=== PATIENT | male | born 1960 | race Caucasian/White ===

== ENCOUNTER 2017-11-08 08:58 | Day surgery (SDC) | payer OTHER, SELFPAY ==
[2017-11-08] VITALS (7 sets, daily range): BP systolic 112–138; BP diastolic 76–88; PULSE 55–89; RESP 10–16; TEMP 35.9–36.6; O2SAT 96–98; BMI 29.6
[2017-11-08] MEDS: SODIUM CHLORIDE 0.9% 1,000 ML 200 ML IV (09:42)
--- NOTE | 2017-11-08 10:21 | P.HP_ITS ---
History of Present Illness Date Patient Seen: 11/08/17 Time Patient Seen: 10:14 Chief complaint: colonoscopy [id number] Narrative: Patient is gentleman here for a colonoscopy. His last exam was 5 years ago. He had polyps removed at that time. No family history of colon cancer . His mother had breast cancer. Patient History Medical History Achilles tendon contracture (Inactive) Surgical History History of tonsillectomy and adenoidectomy (Inactive) Family & Social History Family History: Reviewed 11/08/17 by Dg Garcia MD Social History: household members spouse Meds Home Medications Medication Instructions Recorded Confirmed Type EPINEPHRINE (#EPI-PEN) 1 mg MR Q DAY #2 01/25/11 Rx ALBUTEROL (PROVENTIL INHALER) 2 puff INH SEE INSTRUCTIONS #1 03/05/12 Rx Fluticasone Propionate (FLONASE) 1 spray INTRANASAL BID #1 09/11/12 Rx OMEGA-3 FATTY ACIDS (FISH OIL) 500 mg PO #0 01/05/16 History azelastine 205.5 mcg NS #0 01/05/16 History fexofenadine 180 mg PO QDAYP PRN #0 tab 01/05/16 History multivitamin [Multiple Vitamins] 1 tab PO QDAY #0 tab 01/05/16 History vitamin E 100 unit PO #0 cap 01/05/16 History amoxicillin-pot clavulanate 875 mg PO BID #20 tab 12/24/16 Rx [Augmentin] Allergies Allergy/AdvReac Type Severity Reaction Status Date / Time tramadol [TRAMADOL] Allergy Severe SPASMS AND Unverified 08/28/17 12:02 CONTRACTIONS tree and shrub pollen Allergy Severe Unverified 08/28/17 12:02 [TREE AND SHRUB POLLEN] nickel [NICKEL] Allergy Mild SWELLING, Unverified 08/28/17 12:02 BLEEDING AT CONTACT SITE Review of Systems Review of Systems All systems reviewed & are unremarkable except as noted in HPI and below Exam Vital Signs (past 8 hours): Vital Signs - 8 hr 3 11/08/17 09:28 Temperature 96.7 F L Pulse Rate 89 Respiratory Rate 16 Blood Pressure 138/88 H Pulse Oximetry 98 Pulse Oximetry 98 Oxygen Delivery Method Room Air Narrative Exam Narrative: No apparent distress. Lungs are clear no rales or rhonchi heart regular rate and rhythm without murmur or gallop. Abdomen is protuberant soft nontender without mass. Alert and orient x3. Speech ring content are appropriate. Assessment & Plan (1) Screening for colon cancer: Problem details: Will proceed to colonoscopy. I have discussed the procedure and the rationale with the patient including risks of bleeding, perforation which would necessitate a major operation, failure to find remove all lesions and the potential to tattoo. They appeared to understand and wished to proceed. Current visit: Yes Status: Acute
--- NOTE | 2017-11-08 10:21 | PM.PREOP ---
Pre-operative Note Interval Note Pre-op Check: History & Physical exam performed today H&P completed within 30 days and has changed as indicated here:: None ASA Class (for procedural sedation): I
--- NOTE | 2017-11-08 10:26 | P.HP_ITS ---
History of Present Illness Chief complaint: colonoscopy [id number] Narrative: Patient is gentleman here for a colonoscopy. His last exam was 5 years ago. He had polyps removed at that time. No family history of colon cancer . His mother had breast cancer. Patient History Medical History Achilles tendon contracture (Inactive) Surgical History History of tonsillectomy and adenoidectomy (Inactive) Family & Social History Family History: Reviewed 11/08/17 by Dg Garcia MD Social History: household members spouse Meds Home Medications Medication Instructions Recorded Confirmed Type EPINEPHRINE (#EPI-PEN) 1 mg MR Q DAY #2 01/25/11 Rx ALBUTEROL (PROVENTIL INHALER) 2 puff INH SEE INSTRUCTIONS #1 03/05/12 Rx Fluticasone Propionate (FLONASE) 1 spray INTRANASAL BID #1 09/11/12 Rx OMEGA-3 FATTY ACIDS (FISH OIL) 500 mg PO #0 01/05/16 History azelastine 205.5 mcg NS #0 01/05/16 History fexofenadine 180 mg PO QDAYP PRN #0 tab 01/05/16 History multivitamin [Multiple Vitamins] 1 tab PO QDAY #0 tab 01/05/16 History vitamin E 100 unit PO #0 cap 01/05/16 History amoxicillin-pot clavulanate 875 mg PO BID #20 tab 12/24/16 Rx [Augmentin] Allergies Allergy/AdvReac Type Severity Reaction Status Date / Time tramadol [TRAMADOL] Allergy Severe SPASMS AND Unverified 08/28/17 12:02 CONTRACTIONS venom-wasp Allergy Severe Anaphylaxis Verified 11/08/17 10:26 nickel [NICKEL] Allergy Mild SWELLING, Unverified 08/28/17 12:02 BLEEDING AT CONTACT SITE tree and shrub pollen Allergy Mild Sinus Verified 11/08/17 10:25 [TREE AND SHRUB POLLEN] infections Exam Vital Signs (past 8 hours): Vital Signs - 8 hr 3 11/08/17 09:28 Temperature 96.7 F L Pulse Rate 89 Respiratory Rate 16 Blood Pressure 138/88 H Pulse Oximetry 98 Pulse Oximetry 98 Oxygen Delivery Method Room Air
[2017-11-08] MEDS: fentaNYL 250 MCG/5 ML INJ IV (10:38)
[2017-11-08] MEDS: MIDAZOLAM 5 MG/5 ML VIAL IV (10:38)
--- NOTE | 2017-11-08 10:53 | PM.OP.ENDO ---
Operative Date/Time/Diagnoses - Date of procedure: 11/08/17 Time of procedure: 10:53 Pre-op diagnosis: Screening examination. Last exam 5 years ago. Patient has a personal history of polyps. Post-op diagnosis: same (Sigmoid diverticulosis. Internal hemorrhoids.) Procedure & Clinicians Study performed: Colonoscopy Same procedure as scheduled: Yes Indications: Screening Surgeon: Dg Garcia Procedure Notes SCOAP/Timeout: Performed Procedure in detail: The patient was placed in the left lateral decubitus position and underwent IV sedation directed by the surgeon consisting of fentanyl and Versed. Digital exam was none unremarkable. The scope was inserted and advanced through the rectum into the sigmoid, descending, transverse, and ascending colon. The patient was noted to have sigmoid diverticulosis.. The cecum was reached identified by the ileocecal valve. The scope was gradually brought out. No Polyps were found. The scope ultimately was retroflexed in the rectum. The appearance was[remarkable for small internal hemorrhoids with scarring]. The scope was removed and the patient tolerated the procedure well Scope withdrawal time: Over 8 min Sedation minutes: 25 Findings: diverticulosis (Sigmoid) and internal hemorrhoids (Small with scarring) Specimen(s): none sent Complications: none Recommendations: Colonscopy in 5 years (Due to personal history of polyps) Plan for aftercare: Follow-up as needed. Prep was good. Follow up: as needed Disposition: PACU
--- NOTE | 2017-11-08 10:57 | P.OP.ENDO_ITS ---
Operative Date/Time/Diagnoses - Date of procedure: 11/08/17 Time of procedure: 10:53 Pre-op diagnosis: Screening examination. Last exam 5 years ago. Patient has a personal history of polyps. Post-op diagnosis: same (Sigmoid diverticulosis. Internal hemorrhoids.) Procedure & Clinicians Study performed: Colonoscopy Same procedure as scheduled: Yes Indications: Screening Surgeon: Dg Garcia Procedure Notes SCOAP/Timeout: Performed Procedure in detail: The patient was placed in the left lateral decubitus position and underwent IV sedation directed by the surgeon consisting of fentanyl and Versed. Digital exam was none unremarkable. The scope was inserted and advanced through the rectum into the sigmoid, descending, transverse, and ascending colon. The patient was noted to have sigmoid diverticulosis.. The cecum was reached identified by the ileocecal valve. The scope was gradually brought out. No Polyps were found. The scope ultimately was retroflexed in the rectum. The appearance was[remarkable for small internal hemorrhoids with scarring]. The scope was removed and the patient tolerated the procedure well Scope withdrawal time: Over 8 min Sedation minutes: 25 Findings: diverticulosis (Sigmoid) and internal hemorrhoids (Small with scarring ) Specimen(s): none sent Complications: none Recommendations: Colonscopy in 5 years (Due to personal history of polyps) Plan for aftercare: Follow-up as needed. Prep was good. Follow up: as needed Disposition: PACU
== END 2017-11-08 11:37 | disposition home or self-care (01) ==
PROVIDERS: PCP Family Medicine; Visit Provider Specialist
PROC: 0DJD8ZZ Inspection of Lower Intestinal Tract, Via Natural or Artificial Opening Endoscopic (ICD-10-PCS; CPT 45378; principal; 2017-11-08 09:45)
DX: Z12.11 Encounter for screening for malignant neoplasm of colon (principal); Z86.010 Personal history of colon polyps; K57.30 Diverticulosis of large intestine without perforation or abscess without bleeding; K64.8 Other hemorrhoids
CPT/HCPCS: 45378; 99152; 99153; J2250; J3010

== ENCOUNTER → 2017-12-08 16:40 | Outpatient (CLI) | payer OTHER, SELFPAY ==
--- NOTE | 2017-12-08 16:43 | DI.RAD.S_ITS ---
PROCEDURE: XR RIBS RT MIN 3V W CXR 1V INDICATIONS: Pain in R rib from fall TECHNIQUE: 3 views of the right ribs were acquired, along with a single view chest. COMPARISON: [facility], , CHEST 2 VIEW, 02/16/2013, 14:24. FINDINGS: Surgical changes and devices: None. Bones and chest wall: No fractures or dislocations. No suspicious bony lesions. Overlying soft tissues appear unremarkable. Lungs and pleura: No pleural effusions or pneumothorax. Lungs appear clear. Mediastinum: Mediastinal contours appear normal. Heart size is normal. IMPRESSION: No visualized acute fracture or dislocation. However, if clinical concern and/or pain persist, short interval imaging followup in 7-10 days is recommended, as occult injury cannot be definitively excluded. Dictated by: Renetta Cabral M.D. on 12/08/2017 at 17:18 Approved by: Renetta Cabral M.D. on 12/08/2017 at 17:19
== END ==
PROVIDERS: PCP Family Medicine; Visit Provider Physician Assistant
DX: R07.81 Pleurodynia (principal)
CPT/HCPCS: 71101

== ENCOUNTER 2017-12-29 14:35 | Emergency (ER) | payer OTHER, SELFPAY ==
[2017-12-29 14:41] VITALS: BP 139/85; PULSE 72; RESP 20; TEMP 36.8; O2SAT 97; BMI 30.4
--- NOTE | 2017-12-29 15:14 | PC.NURSE ---
fall approx 3 weeks ago, intermittent back pain/spasm, reports history of same, amb with limping gait and 1pa, denies numbness/tingling/aloc/nausea/incont or other sx
--- NOTE | 2017-12-29 15:30 | ED.BACK ---
HPI - Back Pain/Injury <Yecenia Rojomer, PAID SEARCH SPECIALIST-BC - Last Filed: 12/29/17 22:51> General Chief Complaint: Back Pain/Injury Stated Complaint: muscle spasms Time Seen by Provider: 12/29/17 15:06 Source: patient and family Mode of arrival: ambulatory Limitations: no limitations History of Present Illness HPI Narrative: Patient presents with chief complaint of back pain and muscle spasm. States he has a long history of back problems. Stated he felt a yesterday with and it got worse today while carrying a computer at [employer]. He states that it is around his spine on both sides that it comes in waves. Worse with motion better with rest. States it feels like a spasm. He denies any numbness tingling incontinence or neurological signs or symptoms. He denies any chest pain, shortness of breath, palpitations lightheadedness. He took some ibuprofen yesterday for this. His is concerned about his heart. He does state that he fell a little bit ago on his right side and does have some pain there. Related Data Home Medications Medication Instructions Recorded Confirmed OMEGA-3 FATTY ACIDS (FISH OIL) 500 mg PO #0 01/05/16 12/09/17 azelastine 205.5 mcg NS #0 01/05/16 12/09/17 fexofenadine 180 mg PO QDAYP PRN #0 tab 01/05/16 12/09/17 multivitamin [Multiple Vitamins] 1 tab PO QDAY #0 tab 01/05/16 12/09/17 diclofenac sodium PO 12/08/17 12/09/17 mometasone-formoterol HFA 100 2 puff INHALATION BID 12/08/17 12/09/17 mcg-5 mcg/actuation aerosol inhaler omeprazole PO 12/08/17 12/09/17 simvastatin PO 12/08/17 12/09/17 Previous Rx's Medication Instructions Recorded EPINEPHRINE (#EPI-PEN) 1 mg MR Q DAY #2 01/25/11 ALBUTEROL (PROVENTIL INHALER) 2 puff INH SEE INSTRUCTIONS #1 03/05/12 Fluticasone Propionate (FLONASE) 1 spray INTRANASAL BID #1 09/11/12 diclofenac 3 % topical gel 1 applictn TOP QID #100 gram MDD 12/09/17 8g/day cyclobenzaprine 10 mg PO TID PRN #30 tab 12/29/17 Allergies Allergy/AdvReac Type Severity Reaction Status Date / Time tramadol [TRAMADOL] Allergy Severe SPASMS AND Verified 12/29/17 14:52 CONTRACTIONS venom-wasp Allergy Severe Anaphylaxis Verified 12/29/17 14:52 nickel [NICKEL] Allergy Mild SWELLING, Verified 12/29/17 14:52 BLEEDING AT CONTACT SITE tree and shrub pollen Allergy Mild Sinus Verified 12/29/17 14:52 [TREE AND SHRUB POLLEN] infections Review of Systems <[facility] - Last Filed: 12/29/17 22:51> Review of Systems GENERAL: Denies chills, fatigue, malaise, fever, sweats. HEENT: Denies sinus pain, ear pain, sore throat, difficulty swallowing, dizziness. RESPIRATORY: Denies dyspnea, cough, wheezing, hemoptysis, sputum. CARDIOVASCULAR: Denies chest pain, palpitations, orthopnea, edema, GASTROINTESTINAL: Denies nausea, vomiting, abdominal pain, diarrhea, constipation, melena. : Denies dysuria, frequency, incontinence, hematuria, urinary retention. MUSCULOSKELETAL: See HPI SKIN: Denies rash, skin lesions, or other NEUROLOGIC: Denies weakness, headache, numbness, change in speech, confusion, seizures, incoordination. PSYCHIATRIC: No concerning psychosocial issues. 12 point review of systems is negative except for those stated above Exam <VIRGINIA Ramesh- - Last Filed: 12/29/17 22:51> Narrative Exam Narrative: GENERAL: Well-nourished patient sitting in wheelchair. HEAD: Atraumatic. Normocephalic. No temporal or scalp tenderness. EYES: Pupils equal round and reactive. Extraocular motions intact. No scleral icterus. No injection or drainage. ENT: Nose without bleeding, purulent drainage or septal hematoma. Throat without erythema, tonsillar hypertrophy or exudate. Uvula midline. Airway patent. NECK: Trachea midline. No JVD or lymphadenopathy. Supple, nontender, no meningeal signs. CARDIOVASCULAR: Regular rate and rhythm without murmurs, gallops, or rubs. RESPIRATORY: Clear to auscultation. Breath sounds equal bilaterally. No wheezes, rales, or rhonchi. No pain to anterior posterior rib compression. Pain to lateral rib compression. GASTROINTESTINAL: Abdomen soft, non-tender, nondistended. No hepato-splenomegaly, or palpable masses. No guarding. EXTREMITIES: No clubbing, cyanosis, or edema. No joint tenderness, effusion, or edema noted. BACK: No C-spine or spinal pain to palpation. Patient has pain on palpation of bilateral paraspinal muscles in the T-spine region. Stiff gait. NEURO: AOx3. Intact patellar reflexes bilaterally. Strength is equal bilateral extremities upper and lower. No slurred speech. SKIN: No rash or erythema. Initial Vital Signs Initial Vital Signs: Vital Signs Temperature 98.3 F 12/29/17 14:41 Pulse Rate 72 12/29/17 14:41 Respiratory Rate 20 12/29/17 14:41 Blood Pressure 139/85 H 12/29/17 14:41 Pulse Oximetry 97 12/29/17 14:41 <Saroj Ferguson DO - Last Filed: 12/30/17 09:28> Initial Vital Signs Initial Vital Signs: Vital Signs Temperature 98.3 F 12/29/17 14:41 Pulse Rate 72 12/29/17 14:41 Respiratory Rate 20 12/29/17 14:41 Blood Pressure 139/85 H 12/29/17 14:41 Pulse Oximetry 97 12/29/17 14:41 Course <NORAH Ramesh - Last Filed: 12/29/17 22:51> Orders Ordered: Discontinued Medications Cyclobenzaprine HCl (Flexeril) 10 mg PO NOW ONE Stop: 12/29/17 15:54 Last Admin: 12/29/17 15:55 Dose: 10 mg Ketorolac Tromethamine (Toradol) 30 mg IM NOW ONE Stop: 12/29/17 15:33 Last Admin: 12/29/17 15:55 Dose: 30 mg Vital Signs - 8 hr 12/29/17 15:52 12/29/17 16:57 Temperature 98.0 F 97.0 F L Pulse Rate 66 60 Respiratory Rate 18 16 Blood Pressure [Left Arm] 146/77 H 152/89 H Pulse Oximetry 99 100 <Saroj Ferguson DO - Last Filed: 12/30/17 09:28> Orders Ordered: Discontinued Medications Cyclobenzaprine HCl (Flexeril) 10 mg PO NOW ONE Stop: 12/29/17 15:54 Last Admin: 12/29/17 15:55 Dose: 10 mg Ketorolac Tromethamine (Toradol) 30 mg IM NOW ONE Stop: 12/29/17 15:33 Last Admin: 12/29/17 15:55 Dose: 30 mg Vital Signs - 8 hr 12/29/17 15:52 12/29/17 16:57 Temperature 98.0 F 97.0 F L Pulse Rate 66 60 Respiratory Rate 18 16 Blood Pressure [Left Arm] 146/77 H 152/89 H Pulse Oximetry 99 100 MDM - Back Pain/Injury <VIRGINIA Ramesh- - Last Filed: 12/29/17 22:51> Lab Data Result diagrams: 12/29/17 15:45 12/29/17 15:45 Lab Results 12/29/17 12/29/17 Range/Units 15:45 15:45 WBC 6.5 (4.5-11.0) X10^3/uL RBC 4.87 (4.5-5.9) X10^6/uL Hgb 14.5 (13.5-17.5) g/dL Hct 42.0 (41-53) % MCV 86.4 (80-100) fL MCH 29.7 (26-34) PG MCHC 34.4 (30-36) % RDW 13.5 (11.6-14.8) % Plt Count 265 (150-400) X10^3/uL Neut % (Auto) 60.4 (50-75) % Lymph % (Auto) 26.9 (25-40) % [place] % (Auto) 9.5 (3-14) % Eos % (Auto) 2.5 (2-4) % Baso % (Auto) 0.7 (0-2) % Neut # (Auto) 3900 (2701-1647) /uL Sodium 140 (137-145) mmol/L Potassium 4.0 (3.4-5.1) mmol/L Chloride 104 (98-107) mmol/L Carbon Dioxide 26 (22-32) mmol/L BUN 16 (9-20) mg/dL Creatinine 0.80 (0.66-1.25) mg/dL Estimated GFR > 60.0 (>60) mL/min BUN/Creatinine Ratio 20.0 (6-22) Glucose 95 (70-100) mg/dL Calcium 9.2 (8.4-10.2) mg/dL Total Bilirubin 0.4 (0.2-1.3) mg/dL AST 41 (17-59) IU/L ALT 58 (21-72) IU/L Alkaline Phosphatase 78 (38-126) U/L Total Creatine Kinase 112 (55-170) U/L CK-MB (CK-2) 1.82 (<2.37) ng/mL CK-MB (CK-2) Rel Index 1.6 (1.5-5.0) % Troponin I < 0.012 (0.01-0.034) ng/mL Total Protein 7.2 (6.3-8.2) g/dL Albumin 4.4 (3.5-5.0) g/dL Globulin 2.8 (1.7-4.1) g/dL Albumin/Globulin Ratio 1.6 (1.0-2.8) Imaging Data Chest x-ray: Radiologist's impression: View Report History Print [address] [address] XRay Report Signed Patient: Manny Prado Jr MR#: [id number] : 1960 Acct:[id number] Age/Sex: 57 / M Date of Service: 12/29/17 Loc: ED Accession Number: [id number] Procedure: XR chest 2V Ordering Provider: Yecenia Mo PROCEDURE: XR CHEST 2V INDICATIONS: recent fall, pain left side TECHNIQUE: 2 views of the chest were acquired. COMPARISON: [facility], CHEST 2 VIEW, 02/16/2013, 14:24. [facility], CHEST 2 VIEW, 01/27/2013, 16:48. FINDINGS: Surgical changes and devices: None. Lungs and pleura: No pleural effusions or pneumothorax. Lungs are clear. Mediastinum: Mediastinal contours are normal. Heart size is normal. Bones and chest wall: Contour irregularity of the lateral left sixth rib is unchanged from prior exams and is consistent with an old healed fracture.. Soft tissues appear unremarkable. IMPRESSION: No acute cardiopulmonary disease. Dictated by: Sergey Muse M.D. on 12/29/2017 at 16:14 Approved by: Sergey Muse M.D. on 12/29/2017 at 16:22 ECG Data Attestation: I personally reviewed and interpreted this ECG as follows: Interpretation: Sinus rhythm. Ventricular rate 63. No ectopy. No ST elevation or depression. MDM Narrative Medical decision making narrative: Patient presents with chief complaint of back pain. I did labs to assess his electrolytes, imaging giving in his pain on lateral chest compression, and recent fall. I also did an EKG due to his 's concern of his heart. His lab work including troponin came back within normal limits. His EKG showed sinus rhythm. I gave him some Toradol as well as Flexeril for his muscle spasm on exam. He stated that this improved his pain. 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 I discussed at length follow-up as soon as possible and come back to the emergency department immediately if noted neuro deficits including numbness tingling or incontinence. Patient states to follow up his primary care provider otherwise. Patient had no questions or concerns upon discharge. <Saroj Ferguson DO - Last Filed: 12/30/17 09:28> Lab Data Lab Results 12/29/17 12/29/17 Range/Units 15:45 15:45 WBC 6.5 (4.5-11.0) X10^3/uL RBC 4.87 (4.5-5.9) X10^6/uL Hgb 14.5 (13.5-17.5) g/dL Hct 42.0 (41-53) % MCV 86.4 (80-100) fL MCH 29.7 (26-34) PG MCHC 34.4 (30-36) % RDW 13.5 (11.6-14.8) % Plt Count 265 (150-400) X10^3/uL Neut % (Auto) 60.4 (50-75) % Lymph % (Auto) 26.9 (25-40) % [place] % (Auto) 9.5 (3-14) % Eos % (Auto) 2.5 (2-4) % Baso % (Auto) 0.7 (0-2) % Neut # (Auto) 3900 (2059-9244) /uL Sodium 140 (137-145) mmol/L Potassium 4.0 (3.4-5.1) mmol/L Chloride 104 (98-107) mmol/L Carbon Dioxide 26 (22-32) mmol/L BUN 16 (9-20) mg/dL Creatinine 0.80 (0.66-1.25) mg/dL Estimated GFR > 60.0 (>60) mL/min BUN/Creatinine Ratio 20.0 (6-22) Glucose 95 (70-100) mg/dL Calcium 9.2 (8.4-10.2) mg/dL Total Bilirubin 0.4 (0.2-1.3) mg/dL AST 41 (17-59) IU/L ALT 58 (21-72) IU/L Alkaline Phosphatase 78 (38-126) U/L Total Creatine Kinase 112 (55-170) U/L CK-MB (CK-2) 1.82 (<2.37) ng/mL CK-MB (CK-2) Rel Index 1.6 (1.5-5.0) % Troponin I < 0.012 (0.01-0.034) ng/mL Total Protein 7.2 (6.3-8.2) g/dL Albumin 4.4 (3.5-5.0) g/dL Globulin 2.8 (1.7-4.1) g/dL Albumin/Globulin Ratio 1.6 (1.0-2.8) Discharge Plan Departure Patient Disposition: Home, Self-Care Clinical Impression: Back pain Discharge Date/Time: 12/29/17 17:28 Interventions: ED Discharge Assessment Last Done: 12/29/17 17:28 Instructions: Managing Chronic Low Back Pain, DI for Low Back Pain, Activity May Be Better then Rest for Low Back Pain Recovery, DI for Thoracic Back Pain Activity Restrictions/Additional Instructions: I have given you a prescription for a muscle relaxer. Please use this up to 3 times a day as needed. May be sedating. Please combine it with [id number] medications for pain. I also suggest ice, passive stretching, and rest. Follow up with primary care provider if worsening or no improvement. Come back to the emergency department if you have any weakness numbness tingling or incontinence. Prescriptions: New cyclobenzaprine 10 mg tablet 10 mg PO TID PRN (Reason: muscle spasm) Qty: 30 RF: 0 No Action diclofenac sodium PO RF: 0 omeprazole PO RF: 0 mometasone-formoterol [Dulera] 100-5 mcg/actuation HFA aerosol inhaler 2 puff INHALATION BID RF: 0 simvastatin PO RF: 0 diclofenac sodium 3 % gel 1 applictn TOP QID MDD 8g/day Qty: 100 RF: 0 EPINEPHRINE (#EPI-PEN) 1 mg MR Q DAY Qty: 2 RF: 3 ALBUTEROL (PROVENTIL INHALER) 2 puff INH SEE INSTRUCTIONS Qty: 1 RF: 3 Fluticasone Propionate (FLONASE) 1 spray Intranasal BID Qty: 1 RF: 3 OMEGA-3 FATTY ACIDS (FISH OIL) 500 mg PO Qty: 0 RF: 0 multivitamin [Multiple Vitamins] 1 EACH tablet 1 tab PO QDAY Qty: 0 RF: 0 fexofenadine 180 MG tablet 180 mg PO QDAYP PRNQty: 0 RF: 0 azelastine 205.5 MCG/0.137 ML spray,non-aerosol 205.5 mcg NS Qty: 0 RF: 0 <Saroj Ferguson, DO - Last Filed: 12/30/17 09:28> Cosign ED Attending Tim Attestation: I was immediately available in the department for consultation. Documentation has been reviewed. I agree with assessment and plan.
[2017-12-29 15:52] VITALS: BP 146/77; PULSE 66; RESP 18; TEMP 36.7; O2SAT 99
[2017-12-29] MEDS: CYCLOBENZAPRINE 10 MG TABLET PO (15:55)
[2017-12-29] MEDS: KETOROLAC 60 MG/2 ML VIAL 30 MG IM (15:55)
[2017-12-29 15:57] LABS: Add Manual Diff / Slide Review NO; Basophils Percent Auto 0.7 % (0-2); Eosinophils Percent Auto 2.5 % (2-4); Hemoglobin 14.5 g/dL (13.5-17.5); Lymphocytes Percent Auto 26.9 % (25-40); Mean Corpuscular HGB Conc 34.4 % (30-36); Mean Corpuscular Hemoglobin 29.7 PG (26-34); Mean Corpuscular Volume 86.4 fL (80-100); Monocytes Percent Auto 9.5 % (3-14); Neutrophils Absolute Auto 3900 /uL (3000-5900); Neutrophils Percent Auto 60.4 % (50-75); Platelet Count 265 X10^3/uL (150-400); Red Blood Cell Count 4.87 X10^6/uL (4.5-5.9); Red Cell Distribution Width 13.5 % (11.6-14.8); White Blood Cell Count 6.5 X10^3/uL (4.5-11.0)
[2017-12-29 16:08] LABS: Alanine Aminotransferase 58 IU/L (21-72); Albumin 4.4 g/dL (3.5-5.0); Albumin Globulin Ratio 1.6 (1.0-2.8); Alkaline Phosphatase 78 U/L (38-126); Aspartate Aminotransferase 41 IU/L (17-59); Bilirubin Total 0.4 mg/dL (0.2-1.3); Blood Urea Nitrogen 16 mg/dL (9-20); Calcium 9.2 mg/dL (8.4-10.2); Carbon Dioxide 26 mmol/L (22-32); Chloride 104 mmol/L (98-107); Creatine Kinase 112 U/L (55-170); Estimated Glomerular Filt Rate > 60.0 mL/min (>60); Globulin 2.8 g/dL (1.7-4.1); Glucose 95 mg/dL (70-100); HEMOLYSIS < 15 (0-50); Sodium 140 mmol/L (137-145); Total Protein 7.2 g/dL (6.3-8.2)
[2017-12-29 16:22] LABS: Troponin I < 0.012 ng/mL (0.01-0.034)
[2017-12-29 16:23] LABS: CKMB % Relative Index 1.6 % (1.5-5.0); Creatine Kinase MB 1.82 ng/mL (<2.37)
[2017-12-29 16:57] VITALS: BP 152/89; PULSE 60; RESP 16; TEMP 36.1; O2SAT 100
--- NOTE | 2017-12-29 17:09 | ED_ITS ---
HPI - Back Pain/Injury <Yecenia Rojomer, ASBESTOS HANDLER-BC - Last Filed: 12/29/17 22:51> General Chief Complaint: Back Pain/Injury Stated Complaint: muscle spasms Time Seen by Provider: 12/29/17 15:06 Source: patient and family Mode of arrival: ambulatory Limitations: no limitations History of Present Illness HPI Narrative: Patient presents with chief complaint of back pain and muscle spasm. States he has a long history of back problems. Stated he felt a yesterday with and it got worse today while carrying a computer at [employer]. He states that it is around his spine on both sides that it comes in waves. Worse with motion better with rest. States it feels like a spasm. He denies any numbness tingling incontinence or neurological signs or symptoms. He denies any chest pain, shortness of breath, palpitations lightheadedness. He took some ibuprofen yesterday for this. His is concerned about his heart. He does state that he fell a little bit ago on his right side and does have some pain there. Related Data Home Medications Medication Instructions Recorded Confirmed OMEGA-3 FATTY ACIDS (FISH OIL) 500 mg PO #0 01/05/16 12/09/17 azelastine 205.5 mcg NS #0 01/05/16 12/09/17 fexofenadine 180 mg PO QDAYP PRN #0 tab 01/05/16 12/09/17 multivitamin [Multiple Vitamins] 1 tab PO QDAY #0 tab 01/05/16 12/09/17 diclofenac sodium PO 12/08/17 12/09/17 mometasone-formoterol HFA 100 2 puff INHALATION BID 12/08/17 12/09/17 mcg-5 mcg/actuation aerosol inhaler omeprazole PO 12/08/17 12/09/17 simvastatin PO 12/08/17 12/09/17 Previous Rx's Medication Instructions Recorded EPINEPHRINE (#EPI-PEN) 1 mg MR Q DAY #2 01/25/11 ALBUTEROL (PROVENTIL INHALER) 2 puff INH SEE INSTRUCTIONS #1 03/05/12 Fluticasone Propionate (FLONASE) 1 spray INTRANASAL BID #1 09/11/12 diclofenac 3 % topical gel 1 applictn TOP QID #100 gram MDD 12/09/17 8g/day cyclobenzaprine 10 mg PO TID PRN #30 tab 12/29/17 Allergies Allergy/AdvReac Type Severity Reaction Status Date / Time tramadol [TRAMADOL] Allergy Severe SPASMS AND Verified 12/29/17 14:52 CONTRACTIONS venom-wasp Allergy Severe Anaphylaxis Verified 12/29/17 14:52 nickel [NICKEL] Allergy Mild SWELLING, Verified 12/29/17 14:52 BLEEDING AT CONTACT SITE tree and shrub pollen Allergy Mild Sinus Verified 12/29/17 14:52 [TREE AND SHRUB POLLEN] infections Review of Systems <[facility] - Last Filed: 12/29/17 22:51> Review of Systems GENERAL: Denies chills, fatigue, malaise, fever, sweats. HEENT: Denies sinus pain, ear pain, sore throat, difficulty swallowing, dizziness. RESPIRATORY: Denies dyspnea, cough, wheezing, hemoptysis, sputum. CARDIOVASCULAR: Denies chest pain, palpitations, orthopnea, edema, GASTROINTESTINAL: Denies nausea, vomiting, abdominal pain, diarrhea, constipation, melena. : Denies dysuria, frequency, incontinence, hematuria, urinary retention. MUSCULOSKELETAL: See HPI SKIN: Denies rash, skin lesions, or other NEUROLOGIC: Denies weakness, headache, numbness, change in speech, confusion, seizures, incoordination. PSYCHIATRIC: No concerning psychosocial issues. 12 point review of systems is negative except for those stated above Exam <VIRGINIA Ramesh- - Last Filed: 12/29/17 22:51> Narrative Exam Narrative: GENERAL: Well-nourished patient sitting in wheelchair. HEAD: Atraumatic. Normocephalic. No temporal or scalp tenderness. EYES: Pupils equal round and reactive. Extraocular motions intact. No scleral icterus. No injection or drainage. ENT: Nose without bleeding, purulent drainage or septal hematoma. Throat without erythema, tonsillar hypertrophy or exudate. Uvula midline. Airway patent. NECK: Trachea midline. No JVD or lymphadenopathy. Supple, nontender, no meningeal signs. CARDIOVASCULAR: Regular rate and rhythm without murmurs, gallops, or rubs. RESPIRATORY: Clear to auscultation. Breath sounds equal bilaterally. No wheezes , rales, or rhonchi. No pain to anterior posterior rib compression. Pain to lateral rib compression. GASTROINTESTINAL: Abdomen soft, non-tender, nondistended. No hepato-splenomegaly , or palpable masses. No guarding. EXTREMITIES: No clubbing, cyanosis, or edema. No joint tenderness, effusion, or edema noted. BACK: No C-spine or spinal pain to palpation. Patient has pain on palpation of bilateral paraspinal muscles in the T-spine region. Stiff gait. NEURO: AOx3. Intact patellar reflexes bilaterally. Strength is equal bilateral extremities upper and lower. No slurred speech. SKIN: No rash or erythema. Initial Vital Signs Initial Vital Signs: Vital Signs Temperature 98.3 F 12/29/17 14:41 Pulse Rate 72 12/29/17 14:41 Respiratory Rate 20 12/29/17 14:41 Blood Pressure 139/85 H 12/29/17 14:41 Pulse Oximetry 97 12/29/17 14:41 <Saroj Ferguson DO - Last Filed: 12/30/17 09:28> Initial Vital Signs Initial Vital Signs: Vital Signs Temperature 98.3 F 12/29/17 14:41 Pulse Rate 72 12/29/17 14:41 Respiratory Rate 20 12/29/17 14:41 Blood Pressure 139/85 H 12/29/17 14:41 Pulse Oximetry 97 12/29/17 14:41 Course <NORAH Ramesh - Last Filed: 12/29/17 22:51> Orders Ordered: Discontinued Medications Cyclobenzaprine HCl (Flexeril) 10 mg PO NOW ONE Stop: 12/29/17 15:54 Last Admin: 12/29/17 15:55 Dose: 10 mg Ketorolac Tromethamine (Toradol) 30 mg IM NOW ONE Stop: 12/29/17 15:33 Last Admin: 12/29/17 15:55 Dose: 30 mg Vital Signs - 8 hr 12/29/17 15:52 12/29/17 16:57 Temperature 98.0 F 97.0 F L Pulse Rate 66 60 Respiratory Rate 18 16 Blood Pressure [Left Arm] 146/77 H 152/89 H Pulse Oximetry 99 100 <Saroj Ferguson DO - Last Filed: 12/30/17 09:28> Orders Ordered: Discontinued Medications Cyclobenzaprine HCl (Flexeril) 10 mg PO NOW ONE Stop: 12/29/17 15:54 Last Admin: 12/29/17 15:55 Dose: 10 mg Ketorolac Tromethamine (Toradol) 30 mg IM NOW ONE Stop: 12/29/17 15:33 Last Admin: 12/29/17 15:55 Dose: 30 mg Vital Signs - 8 hr 12/29/17 15:52 12/29/17 16:57 Temperature 98.0 F 97.0 F L Pulse Rate 66 60 Respiratory Rate 18 16 Blood Pressure [Left Arm] 146/77 H 152/89 H Pulse Oximetry 99 100 MDM - Back Pain/Injury <VIRGINIA Ramesh- - Last Filed: 12/29/17 22:51> Lab Data Result diagrams: 12/29/17 15:45 12/29/17 15:45 Lab Results 12/29/17 12/29/17 Range/Units 15:45 15:45 WBC 6.5 (4.5-11.0) X10^3/uL RBC 4.87 (4.5-5.9) X10^6/uL Hgb 14.5 (13.5-17.5) g/dL Hct 42.0 (41-53) % MCV 86.4 (80-100) fL MCH 29.7 (26-34) PG MCHC 34.4 (30-36) % RDW 13.5 (11.6-14.8) % Plt Count 265 (150-400) X10^3/uL Neut % (Auto) 60.4 (50-75) % Lymph % (Auto) 26.9 (25-40) % Coos % (Auto) 9.5 (3-14) % Eos % (Auto) 2.5 (2-4) % Baso % (Auto) 0.7 (0-2) % Neut # (Auto) 3900 (1294-8737) /uL Sodium 140 (137-145) mmol/L Potassium 4.0 (3.4-5.1) mmol/L Chloride 104 (98-107) mmol/L Carbon Dioxide 26 (22-32) mmol/L BUN 16 (9-20) mg/dL Creatinine 0.80 (0.66-1.25) mg/dL Estimated GFR > 60.0 (>60) mL/min BUN/Creatinine Ratio 20.0 (6-22) Glucose 95 (70-100) mg/dL Calcium 9.2 (8.4-10.2) mg/dL Total Bilirubin 0.4 (0.2-1.3) mg/dL AST 41 (17-59) IU/L ALT 58 (21-72) IU/L Alkaline Phosphatase 78 (38-126) U/L Total Creatine Kinase 112 (55-170) U/L CK-MB (CK-2) 1.82 (<2.37) ng/mL CK-MB (CK-2) Rel Index 1.6 (1.5-5.0) % Troponin I < 0.012 (0.01-0.034) ng/mL Total Protein 7.2 (6.3-8.2) g/dL Albumin 4.4 (3.5-5.0) g/dL Globulin 2.8 (1.7-4.1) g/dL Albumin/Globulin Ratio 1.6 (1.0-2.8) Imaging Data Chest x-ray: Radiologist's impression: View Report History Print [address] [address] XRay Report Signed Patient: Manny Prado Jr MR#: [id number] : 1960 Acct:[id number] Age/Sex: 57 / M Date of Service: 12/29/17 Loc: ED Accession Number: [id number] Procedure: XR chest 2V Ordering Provider: Yecenia Mo PROCEDURE: XR CHEST 2V INDICATIONS: recent fall, pain left side TECHNIQUE: 2 views of the chest were acquired. COMPARISON: [facility], CHEST 2 VIEW, 02/16/2013, 14:24. [facility], CHEST 2 VIEW, 01/27/2013, 16:48. FINDINGS: Surgical changes and devices: None. Lungs and pleura: No pleural effusions or pneumothorax. Lungs are clear. Mediastinum: Mediastinal contours are normal. Heart size is normal. Bones and chest wall: Contour irregularity of the lateral left sixth rib is unchanged from prior exams and is consistent with an old healed fracture.. Soft tissues appear unremarkable. IMPRESSION: No acute cardiopulmonary disease. Dictated by: Sergey Muse M.D. on 12/29/2017 at 16:14 Approved by: Sergey Muse M.D. on 12/29/2017 at 16:22 ECG Data Attestation: I personally reviewed and interpreted this ECG as follows: Interpretation: Sinus rhythm. Ventricular rate 63. No ectopy. No ST elevation or depression. MDM Narrative Medical decision making narrative: Patient presents with chief complaint of back pain. I did labs to assess his electrolytes, imaging giving in his pain on lateral chest compression, and recent fall. I also did an EKG due to his ' s concern of his heart. His lab work including troponin came back within normal limits. His EKG showed sinus rhythm. I gave him some Toradol as well as Flexeril for his muscle spasm on exam. He stated that this improved his pain. 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 I discussed at length follow-up as soon as possible and come back to the emergency department immediately if noted neuro deficits including numbness tingling or incontinence. Patient states to follow up his primary care provider otherwise. Patient had no questions or concerns upon discharge. <Saroj Ferguson DO - Last Filed: 12/30/17 09:28> Lab Data Lab Results 12/29/17 12/29/17 Range/Units 15:45 15:45 WBC 6.5 (4.5-11.0) X10^3/uL RBC 4.87 (4.5-5.9) X10^6/uL Hgb 14.5 (13.5-17.5) g/dL Hct 42.0 (41-53) % MCV 86.4 (80-100) fL MCH 29.7 (26-34) PG MCHC 34.4 (30-36) % RDW 13.5 (11.6-14.8) % Plt Count 265 (150-400) X10^3/uL Neut % (Auto) 60.4 (50-75) % Lymph % (Auto) 26.9 (25-40) % Coos % (Auto) 9.5 (3-14) % Eos % (Auto) 2.5 (2-4) % Baso % (Auto) 0.7 (0-2) % Neut # (Auto) 3900 (5386-0590) /uL Sodium 140 (137-145) mmol/L Potassium 4.0 (3.4-5.1) mmol/L Chloride 104 (98-107) mmol/L Carbon Dioxide 26 (22-32) mmol/L BUN 16 (9-20) mg/dL Creatinine 0.80 (0.66-1.25) mg/dL Estimated GFR > 60.0 (>60) mL/min BUN/Creatinine Ratio 20.0 (6-22) Glucose 95 (70-100) mg/dL Calcium 9.2 (8.4-10.2) mg/dL Total Bilirubin 0.4 (0.2-1.3) mg/dL AST 41 (17-59) IU/L ALT 58 (21-72) IU/L Alkaline Phosphatase 78 (38-126) U/L Total Creatine Kinase 112 (55-170) U/L CK-MB (CK-2) 1.82 (<2.37) ng/mL CK-MB (CK-2) Rel Index 1.6 (1.5-5.0) % Troponin I < 0.012 (0.01-0.034) ng/mL Total Protein 7.2 (6.3-8.2) g/dL Albumin 4.4 (3.5-5.0) g/dL Globulin 2.8 (1.7-4.1) g/dL Albumin/Globulin Ratio 1.6 (1.0-2.8) Discharge Plan Departure Patient Disposition: Home, Self-Care Clinical Impression: Back pain Discharge Date/Time: 12/29/17 17:28 Interventions: ED Discharge Assessment Last Done: 12/29/17 17:28 Instructions: Managing Chronic Low Back Pain, DI for Low Back Pain, Activity May Be Better then Rest for Low Back Pain Recovery, DI for Thoracic Back Pain Activity Restrictions/Additional Instructions: I have given you a prescription for a muscle relaxer. Please use this up to 3 times a day as needed. May be sedating. Please combine it with over-the- counter medications for pain. I also suggest ice, passive stretching, and rest. Follow up with primary care provider if worsening or no improvement. Come back to the emergency department if you have any weakness numbness tingling or incontinence. Prescriptions: New cyclobenzaprine 10 mg tablet 10 mg PO TID PRN (Reason: muscle spasm) Qty: 30 RF: 0 No Action diclofenac sodium PO RF: 0 omeprazole PO RF: 0 mometasone-formoterol [Dulera] 100-5 mcg/actuation HFA aerosol inhaler 2 puff INHALATION BID RF: 0 simvastatin PO RF: 0 diclofenac sodium 3 % gel 1 applictn TOP QID MDD 8g/day Qty: 100 RF: 0 EPINEPHRINE (#EPI-PEN) 1 mg MR Q DAY Qty: 2 RF: 3 ALBUTEROL (PROVENTIL INHALER) 2 puff INH SEE INSTRUCTIONS Qty: 1 RF: 3 Fluticasone Propionate (FLONASE) 1 spray Intranasal BID Qty: 1 RF: 3 OMEGA-3 FATTY ACIDS (FISH OIL) 500 mg PO Qty: 0 RF: 0 multivitamin [Multiple Vitamins] 1 EACH tablet 1 tab PO QDAY Qty: 0 RF: 0 fexofenadine 180 MG tablet 180 mg PO QDAYP PRNQty: 0 RF: 0 azelastine 205.5 MCG/0.137 ML spray,non-aerosol 205.5 mcg NS Qty: 0 RF: 0 <Saroj Ferguson, DO - Last Filed: 12/30/17 09:28> Cosign ED Attending Tim Attestation: I was immediately available in the department for consultation. Documentation has been reviewed. I agree with assessment and plan.
== END 2017-12-29 17:28 | disposition home or self-care (01) ==
PROVIDERS: Emergency Provider Nurse Practitioner Family; Family Provider Family Medicine; PCP Family Medicine
DX: M54.9 Dorsalgia, unspecified (principal)
CPT/HCPCS: 71046; 80053; 81003; 82550; 82553; 84484; 85025; 93005; 93010; 96372; 99283; 99285; J1885

== ENCOUNTER → 2019-02-20 08:47 | Outpatient (CLI) | payer OTHER, SELFPAY ==
--- NOTE | 2019-02-27 16:07 | PM.PFT.1 ---
Pulmonary Function Test Referral & Results Date Patient Seen: 02/20/19 Requesting provider: Mike Rod Indication: Asthma Results: The spirometry demonstrates an FVC of 4.79 L which is 112% of predicted. The FEV1 was measured at 4.13 L which is 120% of predicted. The FEV1/FVC ratio was 86 which is 113% of predicted. Following the administration of bronchodilator there was no appreciable change to above normal numbers. Lung volumes show an SVC of 5.18 L which is 120% of predicted. The diffusing capacity was measured at 29.65 which is 104% of predicted. The maximum voluntary ventilation was normal Interpretation: This study demonstrates normal pulmonary function
== END ==
PROVIDERS: PCP Student in an Organized Health Care Education/Training Program; Visit Provider Student in an Organized Health Care Education/Training Program
DX: J45.909 Unspecified asthma, uncomplicated (principal)
CPT/HCPCS: 94060; 94726; 94729

== ENCOUNTER → 2019-03-19 08:45 | Outpatient (CLI) | payer OTHER, SELFPAY ==
--- NOTE | 2019-03-20 14:53 | PM.PFT.1 ---
Pulmonary Function Test Referral & Results Date Patient Seen: 03/19/19 Requesting provider: Mike Rod Results: The spirometry demonstrates an FVC of 4.67 L which is 109% of predicted. The FEV1 was measured at 3.82 L which is 118% of predicted. The FEV1/FVC ratio was 82 which is 107% of predicted. No bronchodilator was administered No lung volumes were obtained No diffusing capacity was performed Interpretation: Compared to PFTs performed on February 20, 2019, current spirometry is essentially unchanged and once again normal, as above
== END ==
PROVIDERS: PCP Student in an Organized Health Care Education/Training Program; Visit Provider Student in an Organized Health Care Education/Training Program
DX: J45.909 Unspecified asthma, uncomplicated (principal)
CPT/HCPCS: 94010

== ENCOUNTER → 2019-04-13 12:06 | Outpatient (CLI) | payer OTHER, SELFPAY ==
--- NOTE | 2019-04-13 12:08 | DI.US.S_ITS ---
LIMITED ULTRASOUND OF LEFT BREAST: 04/13/2019 CLINICAL: Palpable left breast lumps. Comparison is made to exams dated: 04/13/2019 mammogram and 08/29/2011 mammogram - [facility]. Real-time ultrasound of the left breast retroareolar was performed. Caicedo scale images of the real-time examination were reviewed. There is gynecomastia in the left breast in the sub-areolar depth that correlates with palpable abnormality. No suspicious findings. IMPRESSION: BENIGN Asymmetric left breast gynecomastia has progressed since the prior study, correlates with the areas of palpable abnormality, and has the expected sonographic appearance. There is no sonographic evidence of malignancy. Clinical follow up only recommended. Findings and recommendations were conveyed to the patient at time of exam. This exam was interpreted at Station ID: [id number]. Electronically Signed By: Liudmila cota/:04/13/2019 14:02:31 copy to: MILTON MARTINEZ letter sent: Clinical Evaluation Ultrasound BI-RADS: 2 Benign
--- NOTE | 2019-04-13 12:08 | DI.MG.S_ITS ---
MALE BILATERAL DIGITAL DIAGNOSTIC MAMMOGRAM 3D/2D: 04/13/2019 CLINICAL: Left breast mass. [facility] is made [facility] There has been overall increase in density and quantity of left breast glandular tissue compared to the contralateral side and compared to the prior mammogram. There is an area of fibroglandular tissue in the left breast at 6 o'clock in the retroareolar region. This is more prominent and correlates as palpated. There also is an area of fibroglandular tissue in the left breast at 12 o'clock anterior depth. This is more prominent and correlates as palpated. No other significant masses, calcifications, or other findings are seen in either breast. IMPRESSION: INCOMPLETE: NEEDS ADDITIONAL IMAGING EVALUATION The areas of fibroglandular tissue in the left breast at 6 o'clock in the retroareolar region and at 12 o'clock anterior depth are probably benign asymmetric gynecomastia. An ultrasound is recommended for confirmation. This was performed immediately following this exam. This exam was interpreted at Station ID: [id number]. NOTE: For mammograms, a report in lay terms will be sent to the patient. Approximately 15% of breast malignancies will not be visualized mammographically. In the management of a palpable breast mass, a negative mammogram must not discourage biopsy of a clinically suspicious lesion. Electronically Signed By: Liudmila cota/:04/13/2019 13:38:00 copy to: MILTON MELENDEZ BI-RADS Category 0: Incomplete [id number]
== END ==
PROVIDERS: PCP Student in an Organized Health Care Education/Training Program; Visit Provider Surgery
DX: R92.8 Other abnormal and inconclusive findings on diagnostic imaging of breast (principal); N62 Hypertrophy of breast
CPT/HCPCS: 76642; 77066; G0279

== ENCOUNTER → 2019-05-06 08:30 | Outpatient (CLI) | payer OTHER, SELFPAY ==
--- NOTE | 2019-05-06 09:21 | DI.CT.S_ITS ---
PROCEDURE: CT SINUS SCREEN WO CON INDICATIONS: Chronic maxillary sinusitis TECHNIQUE: Noncontrast 3.0 mm axial images acquired from the frontal sinuses to the mid-sella, with coronal and sagittal reformats. For radiation dose reduction, the following was used: automated exposure control, adjustment of mA and/or kV according to patient size. COMPARISON: [facility], CT, SINUS SCREEN WO CONTRAST, 01/03/2012, 13:53. [facility], CT, SINUS SCREEN WO CONTRAST, 02/13/2012, 7:17. FINDINGS: Image quality: Excellent. Maxillary Sinuses: There has been removal of portions of the medial medina of the maxillary sinuses. Moderate mucosal thickening can be seen involving the inferior maxillary sinuses. Ethmoid Air Cells: Moderate mucosal thickening is seen involving the ethmoid air cells. There is demineralization of the ethmoid septations. Sphenoid Sinuses: No bony remodeling or destruction. Minimal mucosal thickening can be seen within sphenoid sinuses. Frontal Sinuses: No bony remodeling or destruction. Dwmr-wa-[id number] mucosal thickening is seen involving the maxillary sinuses, right worse than left. The right frontal sinuses are relatively poorly developed. Ostiomeatal Complexes: Ostiomeatal complexes are patent. No Michael cells. Miscellaneous: Visualized intra-orbital contents are normal. No laila bullosa or paradoxical turbinate curvature. No significant nasal septal deviation. IMPRESSION: Postoperative change, with removal of portions of the medial medina of the maxillary sinuses. Multiple areas of mucosal thickening can be seen, which are overall most prominent within the ethmoid air cells and the maxillary sinuses. Dictated by: Victor Hugo Castorena M.D. on 05/06/2019 at 9:38 Approved by: Victor Hugo Castorena M.D. on 05/06/2019 at 9:42
== END ==
PROVIDERS: PCP Student in an Organized Health Care Education/Training Program; Visit Provider Otolaryngology
DX: J32.8 Other chronic sinusitis (principal)
CPT/HCPCS: 70486

== ENCOUNTER → 2020-06-07 16:28 | Outpatient (CLI) | payer OTHER, SELFPAY ==
--- NOTE | 2020-06-07 16:30 | DI.RAD.S_ITS ---
PROCEDURE: XR LUMBAR SPINE 2-3V INDICATIONS: Low back pain TECHNIQUE: 3 views of the lumbar spine were acquired. COMPARISON: [facility], , L-SPINE 2-3 VIEWS, 07/11/2012, 15:32. FINDINGS: Bones: 5 [id number] vertebrae are present. There is normal bony alignment. No vertebral body compression fractures. No suspicious bony lesions. Soft tissues: Overlying bowel gas pattern is normal. No suspicious soft tissue calcifications. IMPRESSION: Degenerative disc disease is [id number] at L2-L3 and minimal elsewhere. Facet osteoarthritis is minimal at L3-4, mild at L4-5 and moderate at L5-S1. Spinal and foraminal stenosis may be present at L4-5 and L5-S1. No trauma. Dictated by: Darnell Layne M.D. on 06/07/2020 at 16:59 Approved by: Darnell Layne M.D. on 06/07/2020 at 17:00
== END ==
PROVIDERS: PCP Student in an Organized Health Care Education/Training Program; Referring Provider Student in an Organized Health Care Education/Training Program; Visit Provider Student in an Organized Health Care Education/Training Program
DX: S39.012A Strain of muscle, fascia and tendon of lower back, initial encounter (principal); M51.36 Other intervertebral disc degeneration, lumbar region; M47.816 Spondylosis without myelopathy or radiculopathy, lumbar region; M47.817 Spondylosis without myelopathy or radiculopathy, lumbosacral region; X50.0XXA Overexertion from strenuous movement or load, initial encounter
CPT/HCPCS: 72100

== ENCOUNTER → 2020-07-08 09:34 | Outpatient (CLI) | payer OTHER, SELFPAY ==
[2020-07-08 10:02] LABS: COVID19 -Nasal RAPID Negative (Negative)
== END ==
PROVIDERS: PCP Student in an Organized Health Care Education/Training Program; Visit Provider Nurse Practitioner
DX: Z20.822 Contact with and (suspected) exposure to COVID-19 (principal)
CPT/HCPCS: 87635

== ENCOUNTER → 2020-08-24 08:32 | Outpatient (CLI) | payer OTHER, SELFPAY ==
[2020-08-24] MEDS: COVID-19 VACC #1, MRNA(MOD) 100 MCG/0.5 ML VIAL IM (08:42)
== END ==
PROVIDERS: PCP Student in an Organized Health Care Education/Training Program; Visit Provider Internal Medicine
DX: Z23 Encounter for immunization (principal)
CPT/HCPCS: 0011A; 91301

== ENCOUNTER → 2020-09-21 10:00 | Outpatient (CLI) | payer OTHER, SELFPAY ==
[2020-09-21] MEDS: COVID-19 VACC #2, MRNA(MOD) 100 MCG/0.5 ML VIAL IM (10:10)
== END ==
PROVIDERS: PCP Student in an Organized Health Care Education/Training Program; Visit Provider Internal Medicine
DX: Z23 Encounter for immunization (principal)
CPT/HCPCS: 0012A; 91301

== ENCOUNTER → 2020-10-24 09:03 | Outpatient (CLI) | payer OTHER, SELFPAY ==
--- NOTE | 2020-10-24 09:04 | DI.RAD.S_ITS ---
PROCEDURE: FL KNEE INJECTION MR/CT LT COMPARISON: [facility], MR, MR KNEE LT W CON, 10/24/2020, 10:12. INDICATIONS: INTERNAL DERANGEMENT OF LEFT KNEE FINDINGS: The left knee was prepped and draped in a sterile fashion. The overlying soft tissue was anesthetized with 1% lidocaine without epinephrine. Using fluoroscopic guidance a 22 gauge spinal needle was then advanced into the knee joint. Proper position was verified by injecting a small amount of contrast. A total of 15 cc of gadolinium contrast was then injected. The patient will go to MRI for further imaging. IMPRESSION: Arthrogram of the left knee was performed with injection of gadolinium for subsequent MRI. Dictated by: Shekhar Mccarty M.D. on 10/24/2020 at 11:10 Approved by: Shekhar Mccarty M.D. on 10/24/2020 at 11:12
--- NOTE | 2020-10-24 09:04 | DI.MRI.S_ITS ---
PROCEDURE: MR KNEE LT W CON INDICATIONS: INTERNAL DERANGEMENT OF LEFT KNEE TECHNIQUE: After the administration of 50 mL of dilute intra-articular Gadolinium contrast, sagittal T1 spin echo with fat saturation and PD fast spin echo with fat saturation, coronal T1 spin echo with and without fat saturation, coronal T2 fast spin echo with fat saturation, axial PD fast spin echo with fat saturation through the knee. COMPARISON: [facility] [place], [place], XR KNEE ARTHRITIC SERIES LT, 10/11/2020, 10:42. [facility], , FL KNEE INJECTION MR/CT LT, 10/24/2020, 9:26. FINDINGS: Image quality: Excellent. Menisci: The medial meniscus is intact. There is a horizontal oblique tear in the body of the lateral meniscus extending to the middle third of the tibial articular surface. Additional shallow radial tear is seen at the posterior horn. There is no significant meniscal extrusion. Cruciate ligaments: The anterior and posterior cruciate ligaments appear intact. Medial structures: Mild thickening of the proximal medial collateral ligament is compatible with a remote prior low-grade sprain. The semimembranosus tendon insertions and meniscocapsular junction appear intact. Visualized portions of the pes anserinus tendons appear normal. No abnormal bursal fluid. Lateral structures: The lateral collateral ligament, long and short heads of the biceps femoris tendon appear intact. The popliteus tendon appears intact. No signs of posterolateral corner injury. Iliotibial band appears normal. Anterior structures: The quadriceps and patellar tendons appear intact. Patellar alignment is normal. No femoral trochlear dysplasia or ventral trochlear prominence. No edema in the infrapatellar fat pad. Bone and cartilage: No bone marrow contusions or fractures. The articular cartilages in the medial compartment are intact. There is full-thickness cartilage loss in the peripheral portion of the lateral tibial plateau with subchondral cystic changes and subchondral edema. Full-thickness cartilage loss is also seen in the far posterior portion of the lateral femoral condyle with subchondral cystic changes and edema. Small marginal osteophytes are seen in the lateral compartment. No significant cartilage defect is identified in the anterior compartment. Joint space: No intra-articular loose body is seen. There is no medial popliteal cyst. A small amount of fluid is seen tracking along the popliteus tendon sheath. IMPRESSION: 1. Complex tearing of the lateral meniscus with a horizontal oblique component in the meniscal body extending to the middle third of the tibial articular surface as well as a shallow radial component at the posterior horn. 2. Areas of full-thickness cartilage loss in the lateral compartment with subchondral cystic changes and mild subchondral edema. 3. Chronic low-grade sprain of the proximal medial collateral ligament. Dictated by: Otoniel Christian M.D. on 10/24/2020 at 11:54 Approved by: Otoniel Christian M.D. on 10/24/2020 at 12:08
== END ==
PROVIDERS: PCP Student in an Organized Health Care Education/Training Program; Referring Provider Orthopaedic Surgery; Visit Provider Orthopaedic Surgery
DX: M23.92 Unspecified internal derangement of left knee (principal)
CPT/HCPCS: 27369; 73722; 77002

== ENCOUNTER → 2021-02-16 09:51 | Outpatient (CLI) | payer OTHER, SELFPAY ==
[2021-02-16 11:41] LABS: Prostate Specific Antigen Scrn 0.467 ng/mL (0.1-4.0)
== END ==
PROVIDERS: PCP Student in an Organized Health Care Education/Training Program; Referring Provider Student in an Organized Health Care Education/Training Program; Visit Provider Student in an Organized Health Care Education/Training Program
DX: Z12.5 Encounter for screening for malignant neoplasm of prostate (principal)
CPT/HCPCS: 36415; G0103